=== PATIENT | female | born 1975 | race Caucasian/White ===

== ENCOUNTER 2018-07-01 08:40 | Emergency (ER) | payer SELFPAY ==
[~2018-07-01] VITALS: Ht 174 cm; Wt 89.6 kg
[2018-07-01 08:42] VITALS: BP 122/75
--- NOTE | 2018-07-01 08:57 | NUR ---
Healing circular lesions across ABD, upper back & one area on L arm. Present for >1mo, finished abx w/out resolve of s/s.
--- NOTE | 2018-07-01 09:26 | NUR ---
Patient given discharge instructions and they have confirmed that they understand the instructions. Patient ambulatory with steady gait. Provided with verbal & typed prescription assistance info.
== END 2018-07-01 09:28 | disposition home or self-care (01) ==
LOC: ED 09:22
DX: L03.311 Cellulitis of abdominal wall (principal); L03.114 Cellulitis of left upper limb; L03.113 Cellulitis of right upper limb; L03.116 Cellulitis of left lower limb; F17.210 Nicotine dependence, cigarettes, uncomplicated
CPT/HCPCS: 99283

== ENCOUNTER 2018-08-09 18:11 | Emergency (ER) | payer SELFPAY ==
[~2018-08-09] VITALS: Ht 172.7 cm; Wt 90.0 kg
[2018-08-09] MEDS ORDERED: FLUCONAZOLE 100 MG TABLET PO ONE (19:00)
[2018-08-09] MEDS ORDERED: FLUCONAZOLE 100 MG TABLET ONE (19:13)
[2018-08-09 19:31] LABS: CULTURE INDICATED? YES; MICROSCOPIC INDICATED
--- NOTE | 2018-08-09 20:20 | NUR ---
REVIEWED THAT PATIENT ONLY HAVE 1 DOSE OF DIFLUCAN AND WE WILL CALL IN FURTHER MEDICATION IF URINE CULTURE RESULTS. VSS. PATIENT AGREEABLE.
[2018-08-09 20:41] VITALS: BP 122/51
== END 2018-08-09 20:45 | disposition home or self-care (01) ==
LOC: ED 20:18
DX: B37.3 Candidiasis of vulva and vagina (principal)
CPT/HCPCS: 81001; 87086; 99283